=== PATIENT | male | born 1955 | race Hispanic/Latino ===

== ENCOUNTER → 2020-02-29 | Outpatient (CLI) | payer OTHER ==
[~2020-02-29] MED LIST: ALBUTEROL SULFATE 0.083% 2.5 MG/3 ML INH IH ONE
== END | disposition home or self-care (01) ==
LOC: RESP 09:55
PROVIDERS: ATTEND Orthopaedic Surgery
DX: J98.8 Other specified respiratory disorders (principal)
CPT/HCPCS: 71046; 94060